=== PATIENT | female | born 1995 | race Caucasian/White ===

== ENCOUNTER → 2016-12-17 | Outpatient (CLI) | payer BC, OTHER ==
[~2016-12-17] MED LIST: AMIT10TA6 PO; BCPILLS PO; CHOL1000 PO; CYAN10005 PO; DIPH25TA26 PO; ESCI1TAB6 PO; ESCI1TAB9 PO; LORA10TA5 PO; MAGN250T8 PO; OMEG-41 PO; PYRI100T4 PO; RIBO1TAB4 PO; RIBOCAP PO; TOPI25TA99 PO; TOPI50TA16 PO; TURM1CAP PO; VITAMIN B12 PO
--- NOTE | 2016-12-17 14:52 | DIAGNOSTIC IMAGING REPORT ---
CHEST 2 VIEWS ROUTINE CLINICAL HISTORY: CHEST TIGHTNESS OR PRESSURE dyspnea COMPARISON STUDY: No previous studies for comparison. FINDINGS: The bones soft tissues and hemidiaphragms are normal. The cardiomediastinal silhouette is normal. The lungs are clear. The pulmonary vasculature is normal. IMPRESSION: Negative chest. Electronically signed by: Percy Webb M.D. 12/17/2016 2:51 PM Dictated Date/Time: 12/17/2016 2:51 PM
== END | disposition home or self-care (01) ==
LOC: C.RADPV 14:34
PROVIDERS: ATTEND Nurse Practitioner Family
DX: R07.89 Other chest pain (principal)

== ENCOUNTER → 2017-01-07 | Outpatient (CLI) | payer BC, OTHER ==
[2017-01-07 18:17] LABS: BLOOD UREA NITROGEN 10 mg/dl (7-18); BUN/CREATININE RATIO 11.2 (10-20); CALCIUM 8.8 mg/dl (8.5-10.1); CARBON DIOXIDE 25 mmol/L (21-32); CHLORIDE 109 mmol/L (98-107); CREATININE 0.91 mg/dl (0.60-1.20); GLUCOSE 83 mg/dl (70-99); POTASSIUM 4.1 mmol/L (3.5-5.1); SODIUM 140 mmol/L (136-145)
== END ==
LOC: C.LABPVFM 11:23
PROVIDERS: ATTEND Nurse Practitioner
DX: F41.8 Other specified anxiety disorders (principal); G43.909 Migraine, unspecified, not intractable, without status migrainosus; R06.89 Other abnormalities of breathing

== ENCOUNTER 2017-04-08 17:21 | Emergency (ER) | payer BC ==
[~2017-04-08] VITALS: Ht 162.6 cm; Wt 51.0 kg
[~2017-04-08 17:21] MED LIST changes: -AMIT10TA6 PO; -CHOL1000 PO; -CYAN10005 PO; -ESCI1TAB6 PO; -ESCI1TAB9 PO; -LORA10TA5 PO; -MAGN250T8 PO; -RIBO1TAB4 PO; -RIBOCAP PO; -TOPI25TA99 PO; -TURM1CAP PO
[2017-04-08 17:22] VITALS: TEMP 36.5; Ht 162.6 cm; Wt 51.0 kg
[2017-04-08] MEDS ORDERED: KETOROLAC TROMETHAMINE 30 MG/ML VIAL IV STA (18:01)
[2017-04-08] MEDS ORDERED: SODIUM CHLORIDE 0.9% 1000ML 1,000 ML IV STA (18:01)
[2017-04-08] MEDS ORDERED: PROCHLORPERAZINE 5 MG/ML 2 ML VIAL IV STA (18:01)
--- NOTE | 2017-04-08 18:12 | EMERGENCY ROOM VISIT NOTE ---
History Report prepared by Fidencio: Mary Hwang Under the Supervision of: Dr. Uvaldo Blum D.O. First contact with patient: 17:49 Chief Complaint: HEADACHE Stated Complaint: MIGRAINE FOR 12 DAYS,SAW NEURO,DIZZY,NUMBNESS History of Present Illness The patient is a 21 year old female who presents to the Emergency Room with complaints of a constant headache that started 12 days ago. The patient saw her neurologist and was given a Toradol shot, a steroid shot, and prednisone and has had no relief. She notes that she has had numbness in her fingers, been seeing black spots, and have been having blurry vision and nausea over the past 12 days. She denies having these symptoms now. She denies any fevers or neck stiffness. The patient has an MRI scheduled in three days. She denies ever having having a headache of this severity before. The patient is not on any blood thinners. She has been to the ED previously for the same symptoms. Source of History: patient Onset: 12 days ago Position: head Timing: constant Associated Symptoms: + nausea, + numbness (in fingers), No fevers, No neck pain (stiffness) Note: Pt notes her vision is blurry and she has been seeing black spots Review of Systems See HPI for pertinent positives & negatives. A total of 10 systems reviewed and were otherwise negative. Past Medical & Surgical Medical Problems: (1) No pertinent past medical history Family History no pertinent family history stated Social History Smoking Status: Never Smoker Housing Status: lives with family Occupation Status: employed Current/Historical Medications Scheduled Amitriptyline Hcl (Elavil), 10 MG PO HS Control Pills ( Control Pills), 1 TAB PO DAILY Cholecalciferol (Vitamin D3), 1,000 INTER.UNIT PO DAILY Cyanocobalamin (Vitamin B-12), 1,000 MCG PO DAILY Escitalopram Oxalate (Lexapro), 5 MG PO QPM Loratadine (Claritin), 10 MG PO DAILY Magnesium Oxide (Mg Supplement (Magnesium), 250 MG PO DAILY Providence-3 Fatty Acids (Mini Fish Oil), 645 MG PO DAILY Pyridoxine (Vitamin B6), 100 MG PO QAM Riboflavin (Riboflavin), 400 MG PO DAILY Topiramate (Topamax), 50 MG PO BID Turmeric (Curcuma Longa) (Turmeric Curcumin), 500 MG PO DAILY Allergies Coded Allergies: [place] (Verified Allergy, Severe, DIFFICULTY BREATHING, 02/06/16) NO KNOWN DRUG ALLERGIES (Verified Allergy, Unknown, ., 02/06/16) Physical Exam Vital Signs Date Time Temp Pulse Resp B/P (MAP) Pulse Ox O2 Delivery O2 Flow Rate FiO2 04/08/17 19:27 76 16 108/70 99 04/08/17 19:14 70 04/08/17 19:07 72 18 102/58 100 Room Air 04/08/17 17:22 36.5 92 18 130/79 100 Physical Exam GENERAL: Patient is awake, alert, and in no acute distress. Patient is resting comfortably and showing no signs of anxiety EYES: The conjunctivae are clear. The pupils are round and reactive. EARS, NOSE, MOUTH AND THROAT: The nose is without any evidence of any deformity. Mucous membranes are moist tongue is midline NECK: The neck is nontender and supple. RESPIRATORY: Normal respiratory effort is noted there is no evidence of wheezing rhonchi or rales CARDIOVASCULAR: Regular rate and rhythm noted there no murmurs rubs or gallops normal S1 normal S2 GASTROINTESTINAL: The abdomen is soft. Bowel sounds are present in all quadrants. Abdomen is nontender MUSCULOSKELETAL/EXTREMITIES: There is no evidence of gross deformity full range of motion is noted in the hips and shoulders SKIN: There is no obvious evidence of any rash. There are no petechiae, pallor or cyanosis noted. NEUROLOGIC: Patient is awake alert and oriented x3 strength is symmetric patellar reflexes are 2+ bilaterally Medical Decision & Procedures ER Provider Diagnostic Interpretation: Radiology results as stated below per my review and radiologist interpretation: HEAD WITHOUT CONTRAST (CT) FINDINGS: Senior Account Representative topogram: Unremarkable. Ventricles and sulci normal in size. Brain parenchyma normal in appearance with preserved enriquez-white differentiation. No mass effect or midline shift. No hemorrhage or acute territorial infarct. No extra-axial fluid collection. Paranasal sinuses and mastoid air cells clear. Calvarium intact. IMPRESSION: 1. No acute intracranial pathology. Electronically signed by: Khang Hollins M.D. Laboratory Results 04/08/17 18:14 Red Blood Count 4.58, Mean Corpuscular Volume 90.8, Mean Corpuscular Hemoglobin 29.9, Mean Corpuscular Hemoglobin Concent 32.9, Mean Platelet Volume 9.4, Neutrophils (%) (Auto) 74.9, Lymphocytes (%) (Auto) 13.5, Monocytes (%) (Auto) 11.0, Eosinophils (%) (Auto) 0.2, Basophils (%) (Auto) 0.1, Neutrophils # (Auto ) 6.68, Lymphocytes # (Auto) 1.21, Monocytes # (Auto) 0.98, Eosinophils # (Auto ) 0.02, Basophils # (Auto) 0.01 04/08/17 18:14 Test 04/08/17 18:14 04/08/17 18:15 White Blood Count 8.93 K/uL (4.8-10.8) Red Blood Count 4.58 M/uL (4.2-5.4) Hemoglobin 13.7 g/dL (12.0-16.0) Hematocrit 41.6 % (37-47) Mean Corpuscular Volume 90.8 fL (80-100) Mean Corpuscular Hemoglobin 29.9 pg (25-34) Mean Corpuscular Hemoglobin Concent 32.9 g/dl (32-36) Platelet Count 216 K/uL (130-400) Mean Platelet Volume 9.4 fL (7.4-10.4) Neutrophils (%) (Auto) 74.9 % Lymphocytes (%) (Auto) 13.5 % Monocytes (%) (Auto) 11.0 % Eosinophils (%) (Auto) 0.2 % Basophils (%) (Auto) 0.1 % Neutrophils # (Auto) 6.68 K/uL (1.4-6.5) Lymphocytes # (Auto) 1.21 K/uL (1.2-3.4) Monocytes # (Auto) 0.98 K/uL (0.11-0.59) Eosinophils # (Auto) 0.02 K/uL (0-0.5) Basophils # (Auto) 0.01 K/uL (0-0.2) RDW Standard Deviation 48.0 fL (36.4-46.3) RDW Coefficient of Variation 14.4 % (11.5-14.5) Immature Granulocyte % (Auto) 0.3 % Immature Granulocyte # (Auto) 0.03 K/uL (0.00-0.02) Erythrocyte Sedimentation Rate 3 mm/hr (0-21) Anion Gap 6.0 mmol/L (3-11) Est Creatinine Clear Calc Drug Dose 88.8 ml/min Estimated GFR () 121.3 Estimated GFR (Non- 104.7 BUN/Creatinine Ratio 22.9 (10-20) Calcium Level 9.1 mg/dl (8.5-10.1) Total Bilirubin 0.3 mg/dl (0.2-1) Direct Bilirubin < 0.1 mg/dl (0-0.2) Aspartate Amino Transf (AST/SGOT) 15 U/L (15-37) Alanine Aminotransferase (ALT/SGPT) 23 U/L (12-78) Alkaline Phosphatase 92 U/L (45-117) C-Reactive Protein < 0.29 mg/dl (0-0.29) Total Protein 7.6 gm/dl (6.4-8.2) Albumin 4.2 gm/dl (3.4-5.0) Lipase 111 U/L (73-393) Human Chorionic Gonadotropin, Qual NEG (NEG) Urine Color DK YELLOW Urine Appearance CLEAR (CLEAR) Urine pH 6.0 (4.5-7.5) Urine Specific [place] 1.023 (1.000-1.030) Urine Protein NEG (NEG) Urine Glucose (UA) NEG (NEG) Urine Ketones NEG (NEG) Urine Occult Blood TRACE (NEG) Urine Nitrite NEG (NEG) Urine Bilirubin NEG (NEG) Urine Urobilinogen NEG (NEG) Urine Leukocyte Esterase NEG (NEG) Urine WBC (Auto) 1-5 /hpf (0-5) Urine RBC (Auto) 0-4 /hpf (0-4) Urine Hyaline Casts (Auto) 1-5 /lpf (0-5) Urine Epithelial Cells (Auto) 10-20 /lpf (0-5) Urine Bacteria (Auto) NEG (NEG) Laboratory results per my review. Medications Administered Medications (Trade) Dose Ordered Sig/Aries Route Start Time Stop Time Status Last Admin Dose Admin Ketorolac Tromethamine (Toradol Inj) 30 mg NOW STAT IV 04/08/17 18:01 04/08/17 18:03 DC 04/08/17 18:14 30 MG Sodium Chloride 1,000 ml @ 999 mls/hr Q1H1M STAT IV 04/08/17 18:01 04/08/17 19:01 DC 04/08/17 18:13 999 MLS/HR Prochlorperazine Edisylate (Compazine Inj) 10 mg NOW STAT IV 04/08/17 18:01 04/08/17 18:03 DC 04/08/17 18:14 10 MG Diphenhydramine HCl (Benadryl Inj) 25 mg NOW STAT IV 04/08/17 18:19 04/08/17 18:20 DC 04/08/17 18:36 25 MG ED Course 1754: The patient was evaluated in room B7. A complete history and physical examination were performed. 1800: Compazine Inj 10 mg IV,NSS 1,000 ml @ 999 mls/hr IV, Toradol Inj 30 mg IV. 1818: Benadryl Inj 25 mg IV. 1917: Upon reevaluation, the patient is resting. I discussed the results and treatment plan with her. She verbalized agreement of the treatment plan. The patient was discharged home. Medical Decision Differential diagnosis: Etiologies such as migraine headache, meningitis, sinusitis, CO exposure, ICH, SAH, infection, tumor, headache, sinus thrombosis, arterial dissection, as well as others were entertained. Nursing notes reviewed. The patient is a 21-year-old female who presented to the emergency department with family members for an evaluation of acute headache. The patient has a history of migraine headaches. She states that she had an onset which was gradual of her usual migraine headache but he continues on for approximately 12 days. She was seen by her primary neurologist and given an injection of Toradol and placed on steroids but the headache continues. The patient did not have meningismus or fever. She had no focal neurologic deficit. I discussed the patient's laboratory and radiographic studies with her. She was treated with IV fluids IV pain medicine and IV antiemetics. On subsequent reevaluation she was feeling much better. She is scheduled for an MRI this Tuesday through her primary neurologist. She was encouraged to rest and avoid any strenuous activity. She was also encouraged to follow-up with her primary care physician as well as her primary neurologist. She was also encouraged to return to the emergency department immediately if symptoms change worsen or the need arises. Medication Reconcilliation Current Medication List: was personally reviewed by me Blood Pressure Screening Patient's blood pressure: Elevated blood pressure Blood pressure disposition: Elevated BP felt to be situational Impression Primary Impression: Migraine Additional Impression: Headache Scribe Attestation The scribe's documentation has been prepared under my direction and personally reviewed by me in its entirety. I confirm that the note above accurately reflects all work, treatment, procedures, and medical decision making performed by me. Departure Information Dispostion Home / Self-Care Referrals Zenaida Payne (PCP) Forms HOME CARE DOCUMENTATION FORM, IMPORTANT VISIT INFORMATION Patient Instructions Headaches Migraine and Tension, My [facility] Problem Qualifiers
[2017-04-08] MEDS ORDERED: DiphenhydrAMINE HCL 50 MG/ML VIAL IV STA (18:19)
[2017-04-08 18:41] LABS: BASO % 0.1 %; BASO ABS # 0.01 K/uL (0-0.2); COMPLETE YES; EOS % 0.2 %; HEMATOCRIT 41.6 % (37-47); IG% 0.3 %; LYMPH % 13.5 %; LYMPH ABS # 1.21 K/uL (1.2-3.4); MEAN CELL VOLUME 90.8 fL (80-100); MEAN CORPUSCULAR HEMOGLOBIN 29.9 pg (25-34); MEAN CORPUSCULAR HGB CONC 32.9 g/dl (32-36); MEAN PLATELET VOLUME 9.4 fL (7.4-10.4); NEUT % 74.9 %; PLATELET COUNT 216 K/uL (130-400); RED BLOOD COUNT 4.58 M/uL (4.2-5.4); WHITE BLOOD COUNT 8.93 K/uL (4.8-10.8)
[2017-04-08 18:43] LABS: CHLORIDE 107 mmol/L (98-107); POTASSIUM 3.7 mmol/L (3.5-5.1); SODIUM 140 mmol/L (136-145)
[2017-04-08 18:49] LABS: ALT/SGPT 23 U/L (12-78); BLOOD UREA NITROGEN 18 mg/dl (7-18); BUN/CREATININE RATIO 22.9 (10-20); CALCIUM 9.1 mg/dl (8.5-10.1); CARBON DIOXIDE 27 mmol/L (21-32); GLUCOSE 108 mg/dl (70-99)
[2017-04-08 18:51] LABS: URINE APPEARANCE CLEAR (CLEAR); URINE BILIRUBIN NEG (NEG); URINE COLOR DK YELLOW; URINE NITRITE NEG (NEG); URINE SPECIFIC GRAVITY 1.023 (1.000-1.030); UROBILINOGEN NEG (NEG)
[2017-04-08 18:52] LABS: ALKALINE PHOSPHATASE 92 U/L (45-117); AST/SGOT 15 U/L (15-37); C-REACTIVE PROTEIN < 0.29 mg/dl (0-0.29)
--- NOTE | 2017-04-08 18:53 | DIAGNOSTIC IMAGING REPORT ---
HEAD WITHOUT CONTRAST (CT) CLINICAL HISTORY: 21 years-old Female presenting with headache. TECHNIQUE: Multidetector CT imaging of the head was performed without the use of intravenous contrast. IV contrast: None. A dose lowering technique was used consistent with the principles of ALARA (as low as reasonably achievable). COMPARISON: None. CT DOSE (mGy.cm): The estimated cumulative dose is 537.48 mGy.cm. FINDINGS: Exchange Trouble Shooter topogram: Unremarkable. Ventricles and sulci normal in size. Brain parenchyma normal in appearance with preserved enriquez-white differentiation. No mass effect or midline shift. No hemorrhage or acute territorial infarct. No extra-axial fluid collection. Paranasal sinuses and mastoid air cells clear. Calvarium intact. IMPRESSION: 1. No acute intracranial pathology. Electronically signed by: Khang Hollins M.D. 04/08/2017 6:52 PM Dictated Date/Time: 04/08/2017 6:46 PM
[2017-04-08 18:55] LABS: MANUAL MICROSCOPIC REQUIRED? NO; REVIEW REQ? NO
[2017-04-08 19:07] LABS: PREG INTERNAL NEGATIVE QC NEG CLEAR BACKGROUND; PREG INTERNAL POSITIVE QC POS CONTROL LINE
[2017-04-08 19:27] VITALS: BP 108/70; PULSE 76; O2SAT 99
[2017-04-08] MEDS ORDERED: CHOL1000 PO (19:34)
[2017-04-08] MEDS ORDERED: OMEG-41 PO (19:34)
[2017-04-08] MEDS ORDERED: MAGN250T8 PO (19:34)
[2017-04-08] MEDS ORDERED: CYAN10005 PO (19:34)
[2017-04-08] MEDS ORDERED: TURM1CAP PO (19:34)
[2017-04-08] MEDS ORDERED: RIBO1TAB4 PO (19:34)
[2017-04-08] MEDS ORDERED: ESCI1TAB6 PO (19:34)
[2017-04-08] MEDS ORDERED: LORA10TA5 PO (19:34)
[2017-04-08] MEDS ORDERED: AMIT10TA6 PO (19:34)
== END 2017-04-08 19:29 | disposition home or self-care (01) ==
LOC: C.EDB 17:22
DX: G43.909 Migraine, unspecified, not intractable, without status migrainosus (principal); Z79.3 Long term (current) use of hormonal contraceptives; Z79.899 Other long term (current) drug therapy

== ENCOUNTER → 2017-04-12 | Outpatient (CLI) | payer BC ==
[~2017-04-12] MED LIST changes: +AMIT10TA6 PO; +CHOL1000 PO; +CYAN10005 PO; -DIPH25TA26 PO; +ESCI1TAB6 PO; +LORA10TA5 PO; +MAGN250T8 PO; +RIBO1TAB4 PO; +TURM1CAP PO; -VITAMIN B12 PO
--- NOTE | 2017-04-12 16:41 | DIAGNOSTIC IMAGING REPORT ---
MRI OF THE BRAIN WITHOUT CONTRAST CLINICAL HISTORY: G43.919 Intractable [id number] COMPARISON STUDY: Head CT dated 04/08/2017 FINDINGS: Sagittal T1, axial diffusion, proton density and T2 weighted axial, coronal FLAIR, and axial T1-weighted images were acquired. No intra or extra-axial mass lesions are visualized Axial diffusion-weighted images reveal no evidence of acute or subacute infarction. There is no evidence of ventricular dilatation. Proton density T2-weighted and FLAIR images reveal no significant intraparenchymal signal abnormalities. There is a small right maxillary sinus polyp/retention cyst. There are no abnormal flow voids. IMPRESSION: Normal MRI of the brain. Electronically signed by: Reid Miles M.D. 04/12/2017 4:40 PM Dictated Date/Time: 04/12/2017 4:37 PM
== END | disposition home or self-care (01) ==
LOC: C.MRIBC 15:55
PROVIDERS: ATTEND Psychiatry & Neurology Neurology
DX: G43.919 Migraine, unspecified, intractable, without status migrainosus (principal)

== ENCOUNTER → 2017-04-22 | Outpatient (CLI) | payer BC ==
[2017-04-22 18:18] LABS: LYME DISEASE AB IGG NEG (NEG); LYME DISEASE AB IGM NEG (NEG)
== END | disposition home or self-care (01) ==
LOC: C.LABPVFM 16:16
PROVIDERS: ATTEND Nurse Practitioner
DX: R53.83 Other fatigue (principal); G43.909 Migraine, unspecified, not intractable, without status migrainosus; F41.9 Anxiety disorder, unspecified

== ENCOUNTER → 2017-09-02 | Outpatient (CLI) | payer BC ==
[~2017-09-02] MED LIST changes: -AMIT10TA6 PO; -ESCI1TAB6 PO; +ESCI1TAB9 PO; -LORA10TA5 PO; +LORA10TA6 PO; +TOPI25TA99 PO
== END | disposition home or self-care (01) ==
LOC: C.LABSPEC 15:54
PROVIDERS: ATTEND Obstetrics & Gynecology
DX: Z01.419 Encounter for gynecological examination (general) (routine) without abnormal findings (principal)

== ENCOUNTER → 2017-09-02 | Outpatient (CLI) | payer BC | END | disposition home or self-care (01) | LOC: C.LABSPEC 13:52 | PROVIDERS: ATTEND Obstetrics & Gynecology | DX: Z11.3 Encounter for screening for infections with a predominantly sexual mode of transmission (principal); Z11.8 Encounter for screening for other infectious and parasitic diseases ==

== ENCOUNTER → 2017-11-17 | Outpatient (CLI) | payer BC | END | disposition home or self-care (01) | LOC: C.RDSM 15:23 | PROVIDERS: ATTEND Orthopaedic Surgery Sports Medicine | DX: R20.0 Anesthesia of skin (principal) ==

== ENCOUNTER 2024-10-07 14:24 | Inpatient (IN) ==
[2024-10-07] MEDS ORDERED: ACETAMINOPHEN 500 MG TAB PO PRN (16:35)
[2024-10-07] MEDS ORDERED: CALCIUM CARBONATE 500 MG CHEWABLE TAB PO PRN (16:35)
[2024-10-07] MEDS ORDERED: LIDOCAINE 1% LOCAL 20 ML VIAL INFIL PRN (16:35)
[2024-10-07] MEDS: LACTATED RINGER'S 1,000 ML IV PRN (16:47)
--- NOTE | 2024-10-07 16:59 | Anesthesiology Consultation ---
Date of Service October 07, 2024 Assessment & Plan (1) Encounter for pre-operative examination: Chart Review Chart Review: Acceptable Risk for Labor Epidural History Height/Weight Height: 5 ft 5 in Weight: 64.864 kg Allergies Allergy/AdvReac Type Severity Reaction Status Date / Time latex Allergy Intermediate Rash Verified 10/05/24 15:09 No Known Drug Allergies Allergy Unknown . Verified 10/05/24 15:09 Medications Home Medications Medication Instructions Recorded Confirmed Last Taken 21-iron fu-folic acid PO 02/22/24 10/05/24 10/06/24 [ Complete] ferrous sulfate 65 mg PO 2XWK 06/04/24 10/07/24 10/06/24 acetone (urine) test (Ketone Urine #50 ea 08/17/24 10/05/24 Unknown Test strips) blood sugar diagnostic (OneTouch #150 ea 08/17/24 10/05/24 Unknown Verio test strips) blood-glucose meter (OneTouch #1 ea 08/17/24 10/05/24 Unknown Verio Reflect Meter) lancets 33 gauge (OneTouch Delica #150 ea 08/17/24 10/05/24 Unknown Plus Lancet) vitamin B6-vitamin E-magnesium tab PO 10/07/24 10/07/24 tablet Active Medications Generic Name Dose Route Start Last Admin Trade Name Freq PRN Reason Stop Dose Admin Lactated Ringer's 1,000 mls @ 125 mls/hr 10/07/24 16:35 10/07/24 16:47 Lr IV 10/08/24 16:34 999 mls/hr .Q8H PRN Administration L&D Protocol Protocol Past Medical History Medical History (Updated 10/07/24 @ 16:59 by Christopher Bailey MD) Gestational diabetes Adult celiac disease Need for MMR vaccine Classic migraine with aura Anxiety Past Family History Family History Mother Anxiety Gallbladder disease Emphysema of lung Depression Father Hypertension Grandfather (Maternal) Anxiety Depression Emphysema of lung Bladder cancer Grandfather (Paternal) Kidney disease Heart disease Myocardial infarction Grandmother (Maternal) Breast cancer, Onset Age: 75 Heart disease, congenital Grandmother (Paternal) Diabetes Hypertension Mouth cancer Denies family history of Ovarian cancer Prostate cancer Colorectal cancer Past Surgical History Surgical History H/O colonoscopy Hx of endoscopy History of tooth extraction History of carpal tunnel surgery R wrist Social History Smoking Status: Never smoker Do You Dip or Chew Tobacco: No Hx Alcohol Use: No Hx Substance Use: No Physical Exam Vital Signs Last Vital Signs Temp 36.5 C 10/07/24 14:41 Pulse 88 10/07/24 16:56 Resp 20 10/07/24 14:41 BP 123/83 10/07/24 14:41 Pulse Ox 98 10/07/24 16:56 Testing Laboratory Results pending
[2024-10-07 17:10] LABS: Hematocrit (blood only) 38.4 % (37.0-47.0); Mean Corpuscular Hemoglobin 30.3 pg (25.0-34.0); Mean Corpuscular Hgb Conc 33.9 g/dL (32.0-36.0); Mean Corpuscular Volume 89.5 fL (80.0-100.0); Platelet Count 189 K/uL (130-400); RDW Coefficient of Variation 14.6 % (11.5-14.5); RDW Standard Deviation 47.3 fL (36.4-46.3); Red Blood Count 4.29 M/uL (4.20-5.40)
--- NOTE | 2024-10-07 17:12 | History & Physical Report ---
Date of Service October 07, 2024 Assessment & Plan (1) Supervision of normal first : Plan: Eneida is a 28-year-old G1, P0 currently at 39 weeks 2 days gestational age presented for labor evaluation and spontaneous rupture during monitoring. Category 1 tracing. Currently laboring spontaneously but will augment if needed. Epidural per preference. GBS negative. (2) SROM (spontaneous rupture of membranes): (3) Normal labor and delivery: History of Present Illness Primary Care Provider: Mercedez Reese DO Eneida is a 28-year-old G1, P0 currently at 39 weeks 2 days gestational age presents in early labor. Patient had a spontaneous rupture of membranes during labor evaluation. Denying vaginal bleeding and noted good movement. Allergies Allergy/AdvReac Type Severity Reaction Status Date / Time latex Allergy Intermediate Rash Verified 10/05/24 15:09 No Known Drug Allergies Allergy Unknown . Verified 10/05/24 15:09 Home Medications Medication Instructions Recorded Confirmed Type 21-iron fu-folic acid PO 02/22/24 10/05/24 History [ Complete] ferrous sulfate 65 mg PO 2XWK 06/04/24 10/07/24 History acetone (urine) test (Ketone Urine #50 ea 08/17/24 10/05/24 Rx Test strips) blood sugar diagnostic (OneTouch #150 ea 08/17/24 10/05/24 Rx Verio test strips) blood-glucose meter (OneTouch #1 ea 08/17/24 10/05/24 Rx Verio Reflect Meter) lancets 33 gauge (OneTouch Delica #150 ea 08/17/24 10/05/24 Rx Plus Lancet) vitamin B6-vitamin E-magnesium tab PO 10/07/24 History tablet Patient History Medical History (Updated 10/07/24 @ 17:11 by Derrick Grady MD) Gestational diabetes Adult celiac disease Need for MMR vaccine Classic migraine with aura Anxiety Surgical History H/O colonoscopy Hx of endoscopy History of tooth extraction History of carpal tunnel surgery R wrist Family History Mother Anxiety Gallbladder disease Emphysema of lung Depression Father Hypertension Grandfather (Maternal) Anxiety Depression Emphysema of lung Bladder cancer Grandfather (Paternal) Kidney disease Heart disease Myocardial infarction Grandmother (Maternal) Breast cancer, Onset Age: 75 Heart disease, congenital Grandmother (Paternal) Diabetes Hypertension Mouth cancer Denies family history of Ovarian cancer Prostate cancer Colorectal cancer Social History (Updated 10/07/24 @ 14:39 by Kaley Gordon, RN) Smoking Status: Never smoker Second Hand Exposure: No; Do You Dip or Chew Tobacco: No; Hx Alcohol Use: No Hx Substance Use: No Preferred Language: Togolese Communication Ability: Effective Visual Impairment: No Limitations Hearing Ability: Normal Simulation Engineer Required: No Beliefs That Will Affect Care: None marital status: marital status details: Maurilio Colón (26) [phone] Current Living Situation: Spouse Current Living Situation Comment: lives with , dog, cat-Fob changing litter current occupational status: employed current occupation: [employer] How many Children do You have: 0 Other Information That Helps Us Care for You: No Feels Safe at Home: Yes Childhood Exposure to Second-Hand Smoke: No Diet: regular Diet Comment: regular caffeine: No during the past year weight has: remained stable Dental Care, Regularly: Yes Physical Activity Frequency: Daily Seatbelt Use: always Sunscreen Use: Yes Assistive Devices: None Physical Exam Genitourinary: OB Exam Monitor Tracing: + external FHT monitor used, + external uterine monitor used, + category I and + normal FHT variability Grossly ruptured on exam for clear fluid Results & Data Vital Signs (Past 12 Hours) Vital Signs Temp Pulse Resp BP 10/07/24 14:41 36.5 C 82 20 123/83 10/07/24 14:35 82 123/83 Code Status & VTE Plan VTE Prophylaxis Plan VTE Prophylaxis will be ordered: No Coding Level of Care Code None Diagnoses Encounter for supervision of normal first in third trimester Z34.03 Trimester: third trimester SROM (spontaneous rupture of membranes) Normal labor and delivery O80 (1) Supervision of normal first Trimester: third trimester Qualified Code(s): Z34.03 - Encounter for supervision of normal first , third trimester
[2024-10-07] MEDS: BUPIVACAINE 0.25% PF 30 ML VIAL ONE (17:22)
[2024-10-07] MEDS: fentaNYL citrate PF 100 MCG/2 ML VIAL ONE (17:22)
[2024-10-07] MEDS: fentANYL 2 MCG/ML BUPIVacaine 0.125%-NSS 100ML BAG ONE (17:28)
[2024-10-07] MEDS: LIDOCAINE 2%/EPINEPHRINE 1:200,000 20 ML PF ONE (17:28)
[2024-10-07] MEDS ORDERED: ONDANSETRON INJ 2 MG/ML 2 ML VIAL IV PRN (17:31)
[2024-10-07] MEDS ORDERED: NALOXONE HCL 1 MG in SODIUM CHLORIDE 0.9% 1,000 ML IV PRN (17:31)
[2024-10-07] MEDS ORDERED: SODIUM CHLORIDE 0.9% PF INJ 10 ML VIAL EPI PRN (17:31)
[2024-10-07] MEDS ORDERED: NALOXONE HCL 0.4 MG/1 ML VIAL/CARP IV PRN (17:31)
[2024-10-07] MEDS ORDERED: LIDOCAINE 2% MPF LOCAL 5 ML VIAL EPI PRN (17:31)
[2024-10-07] MEDS ORDERED: fentANYL 2 MCG/ML BUPIVacaine 0.125%-NSS 100ML BAG EPI PRN (17:31)
[2024-10-07] MEDS ORDERED: fentaNYL citrate PF 100 MCG/2 ML VIAL EPI PRN (17:31)
[2024-10-07] MEDS ORDERED: ROPIVACAINE 0.5% PF 5 MG/ML 20 ML VIAL EPI PRN (17:31)
[2024-10-07] MEDS ORDERED: ePHEDrine sulfate 50 MG/ML AMP IV PRN (17:31)
[2024-10-07] MEDS ORDERED: BUPIVACAINE 0.25% PF 30 ML VIAL EPI PRN (17:31)
[2024-10-07] MEDS: SODIUM CHLORIDE 0.9% PF INJ 10 ML VIAL ONE (17:32)
[2024-10-07] MEDS: ePHEDrine sulfate 50 MG/ML AMP ONE (17:33)
[2024-10-07] MEDS: OXYTOCIN 30 UNITS/NSS 30 UNITS/500 ML BAG IV PRN (20:57)
[2024-10-07] MEDS ORDERED: HYDROCORTISONE ACETATE 25 MG SUPP PR PRN (21:07)
[2024-10-07] MEDS ORDERED: OXYTOCIN 30 UNITS/NSS 30 UNITS/500 ML BAG IV PRN (21:07)
[2024-10-07] MEDS ORDERED: DIPHTHER/TETAN/PERTUS Vaccine (Tdap, Adol/Adult) 0.5mL IM ONE (21:07)
--- NOTE | 2024-10-07 21:09 | Delivery Summary ---
Vaginal Delivery Summary Date of Service October 07, 2024 Vaginal Delivery Summary and 1st Degree LAC Progressed to 10 cm dilated, 100% effaced +3 station pushed over intact perineum with epidural anesthesia and delivered a viable male with weight and Apgars pending. Head delivered without difficulty quickly followed by shoulders and body. There is noted to be a tight nuchal cord which was delivered through and reduced after delivery. was noted to be vigorous soon after delivery and a 1 minute delayed cord clamping was initiated. Cord was then double clamped and cut and remained on maternal abdomen. Cord blood obtained and attention turned to delivery of placenta was delivered intact three-vessel cord gentle cord traction. Inspection of vagina perineum and cervix there is noted to be a left labial laceration which repaired 3-0 Vicryl in a continuous running stitch. Needle sponge and instrument counts correct at the completion of the case. Both mother and stable immediate post delivery timeframe. No complications noted and blood loss per QBL. [facility] Vaginal Delivery Charge Delivery Type Details: and 1st Degree LAC
--- NOTE | 2024-10-07 22:53 | Anesthesia Procedure Note ---
Date of Service October 07, 2024 Anesthesia Post Epidural Note Vital Signs Vital Signs: Temp Pulse Resp BP Pulse Ox 36.9 C 98 H 16 112/76 93 10/07/24 19:02 10/07/24 22:43 10/07/24 22:30 10/07/24 22:43 10/07/24 21:03 Notes Mental Status: alert / awake / arousable and participated in evaluation Patient Amnestic to Procedure: No Nausea / Vomiting: adequately controlled Pain: adequately controlled Airway Patency, RR, SpO2: stable & adequate BP & HR: stable & adequate Hydration State: stable & adequate Neuraxial Anesthesia: was administered Anesthetic Complications: no major complications apparent and Pt Satisfied with anesthetic care Epidural: Removed without complications and With tip intact
[2024-10-08] MEDS: IBUPROFEN 600 MG TAB PO PRN (06:44)
[2024-10-08] MEDS: BUPIVACAINE 0.25% PF 30 ML VIAL EPI STA (07:15)
[2024-10-08] MEDS: fentaNYL citrate PF 100 MCG/2 ML VIAL EPI STA (07:15)
[2024-10-08] MEDS: SODIUM CHLORIDE 0.9% PF INJ 10 ML VIAL EPI STA (07:15)
[2024-10-08] MEDS: LIDOCAINE 2%/EPINEPHRINE 1:200,000 20 ML PF EPI STA (07:15)
--- NOTE | 2024-10-08 07:27 | Obstetrical Progress Note ---
Date of Service <Teodoro Johnson MD - Last Filed: 10/08/24 07:47> October 08, 2024 Assessment & Plan <Teodoro Johnson MD - Last Filed: 10/08/24 07:47> (1) care and examination: PPD#1 s/p at 39 wga. Rh+, GBS neg, rubella non immune, VSS Continue routine care, ambulation, diet as tolerated Plan for DC tomorrow <Derrick Grady MD - Last Filed: 10/08/24 07:51> (1) care and examination: Subjective <Teodoro Johnson MD - Last Filed: 10/08/24 07:47> Eneida is a 28yo who is PPD#1 following at 38 wga Mild abd pain/cramping, ~1/10 Voiding w/o issue Tolerating meals Ambulating normally +passing gas Lochia - appropriate, diminishing Planning to breastfeed. Constitutional: no fever, no chills or no sweats Respiratory: no dyspnea Cardiovascular: no chest pain, no palpitations or no calf pain Breast: no breast pain Gastrointestinal: no nausea or no vomiting Genitourinary (female): no dysuria Neurologic: no headache(s) no changes in vision, no headaches Physical Exam <Teodoro Johnson MD - Last Filed: 10/08/24 07:47> General: Alert, oriented. No acute distress. Cardiac: Regular rate and rhythm, no murmurs, rubs, or gallops. Respiratory: Clear to auscultation bilaterally. No increased work of breathing. Symmetrical chest rise. No respiratory distress. Abdomen: Soft, nontender, nondistended. Bowel sounds present. Uterus: Uterine fundus firm, nontender, palpable at the level of the umbilicus. Lower extremities: No lower extremity edema or swelling. No deep calf pain. Results & Data <Teodoro Johnson MD - Last Filed: 10/08/24 07:47> Vital Signs (Past 12 Hours) Vital Signs Temp Pulse Pulse Resp BP BP Pulse Ox 10/08/24 03:45 37.7 C H 114 H 18 117/80 10/07/24 23:28 37 C 89 16 122/79 97 10/07/24 23:05 100 H 124/77 10/07/24 23:00 18 10/07/24 22:58 107 H 143/79 H 10/07/24 22:43 98 H 112/76 10/07/24 22:30 16 10/07/24 22:28 93 H 109/72 10/07/24 22:15 16 10/07/24 22:13 101 H 119/81 10/07/24 22:00 16 10/07/24 21:58 107 H 122/79 10/07/24 21:45 18 10/07/24 21:43 111 H 115/64 10/07/24 21:32 92 H 117/64 10/07/24 21:30 18 10/07/24 21:15 18 10/07/24 21:13 90 110/62 10/07/24 21:03 106 H 93 10/07/24 21:01 96 10/07/24 21:01 114 H 10/07/24 21:01 104 H 112/57 L 10/07/24 21:00 18 10/07/24 20:57 111 H 94 10/07/24 20:56 116 H 100 10/07/24 20:51 129 H 100 10/07/24 20:46 120 H 100 10/07/24 20:45 107 H 89 L 10/07/24 20:44 123 H 107/56 L 10/07/24 20:41 106 H 66 L 10/07/24 20:38 106 H 79 L 10/07/24 20:36 134 H 85 L 10/07/24 20:31 108 H 100 10/07/24 20:29 105 H 122/81 10/07/24 20:28 116 H 93 10/07/24 20:26 110 H 98 10/07/24 20:21 97 H 100 10/07/24 20:16 90 100 10/07/24 20:14 89 125/80 10/07/24 20:13 99 H 91 10/07/24 20:11 91 H 99 10/07/24 20:06 90 100 10/07/24 20:01 90 100 10/07/24 19:59 91 H 130/83 10/07/24 19:56 93 H 100 10/07/24 19:51 92 H 99 10/07/24 19:46 107 H 100 10/07/24 19:43 110 H 116/78 10/07/24 19:41 104 H 99 10/07/24 19:36 113 H 98 10/07/24 19:31 104 H 100 10/07/24 19:29 103 H 113/68 O2 Del Method 10/08/24 03:45 Room Air 10/07/24 23:28 Room Air 10/07/24 23:05 10/07/24 23:00 10/07/24 22:58 10/07/24 22:43 10/07/24 22:30 10/07/24 22:28 10/07/24 22:15 10/07/24 22:13 10/07/24 22:00 10/07/24 21:58 10/07/24 21:45 10/07/24 21:43 10/07/24 21:32 10/07/24 21:30 10/07/24 21:15 10/07/24 21:13 10/07/24 21:03 10/07/24 21:01 10/07/24 21:01 10/07/24 21:01 10/07/24 21:00 10/07/24 20:57 10/07/24 20:56 10/07/24 20:51 10/07/24 20:46 10/07/24 20:45 10/07/24 20:44 10/07/24 20:41 10/07/24 20:38 10/07/24 20:36 10/07/24 20:31 10/07/24 20:29 10/07/24 20:28 10/07/24 20:26 10/07/24 20:21 10/07/24 20:16 10/07/24 20:14 10/07/24 20:13 10/07/24 20:11 10/07/24 20:06 10/07/24 20:01 10/07/24 19:59 10/07/24 19:56 10/07/24 19:51 10/07/24 19:46 10/07/24 19:43 10/07/24 19:41 10/07/24 19:36 10/07/24 19:31 10/07/24 19:29 Supervising Physician <Derrick Grady MD - Last Filed: 10/08/24 07:51> Co-Signing Physician Notes Patient seen with resident and agree with the above findings and plan. Routine care Resident Activity Tracking <Teodoro Johnson MD - Last Filed: 10/08/24 07:47> Resident Involvement: Resident Care Provided Care Provided: Adult Hospital Medicine
[2024-10-08] MEDS: ACETAMINOPHEN 325 MG TAB PO PRN (11:09)
[2024-10-08] MEDS: BENZOCAINE 20% SPRY 85 APPLN/85 GM CAN EXT PRN (11:09)
[2024-10-08] MEDS ORDERED: Nursing to Pharmacy Communication SCH (12:45)
[2024-10-08] MEDS: DOCUSATE SODIUM 100 MG CAP PO SCH (21:04)
[2024-10-08] MEDS: bisacodyL 5 MG TABEC PO SCH (21:05)
[2024-10-09] MEDS ORDERED: bisacodyL 10 MG SUPP PR PRN
[2024-10-09 02:22] VITALS: TEMP 98.1
--- NOTE | 2024-10-09 06:10 | Obstetrical Progress Note ---
Date of Service October 09, 2024 Assessment & Plan (1) care and examination: PPD#2 s/p at 39 wga. Rh+, GBS neg, rubella non immune, VSS Continue routine care, ambulation, diet as tolerated Plan for DC today Melita Monique is a 28yo who is PPD#2 following at 38 wga Mild abd pain/cramping, ~1/10 Voiding w/o issue Tolerating meals Ambulating normally +passing gas, no BM Lochia - appropriate, diminishing Planning to breastfeed. Constitutional: no fever, no chills or no sweats Respiratory: no dyspnea Cardiovascular: no chest pain, no palpitations or no calf pain Breast: no breast pain Gastrointestinal: no nausea or no vomiting Genitourinary (female): no dysuria Neurologic: no headache(s) Physical Exam General: Alert, oriented. No acute distress. Cardiac: Regular rate and rhythm, no murmurs, rubs, or gallops. Respiratory: Clear to auscultation bilaterally. No increased work of breathing. Symmetrical chest rise. No respiratory distress. Abdomen: Soft, nontender, nondistended. Bowel sounds present. Uterus: Uterine fundus firm, nontender, palpable at the level of the umbilicus. Lower extremities: No lower extremity edema or swelling. No deep calf pain. Results & Data Vital Signs (Past 12 Hours) Vital Signs Temp Pulse Resp BP Pulse Ox O2 Del Method 10/09/24 02:15 36.7 C 75 16 104/69 97 Room Air 10/08/24 21:00 36.8 C 80 18 107/73 96 Room Air Resident Activity Tracking Resident Involvement: Resident Care Provided Care Provided: Adult Hospital Medicine
[2024-10-09] MEDS: FERROUS SULFATE 325 MG TAB PO SCH (08:00)
[2024-10-09] MEDS: PRENATAL VITAMIN 1 TAB PO SCH (08:00)
[2024-10-09 08:43] VITALS: BP 111/73; PULSE 84; RESP 20; O2SAT 96
[2024-10-09] MEDS: MEASLES, MUMPS & RUBELLA VIRUS VACCINE (MMR) 0.5ML VIAL SQ ONE (10:46)
== END 2024-10-09 13:30 | disposition home or self-care (01) | DRG 807 ==
LOC: 4S1 14:24 → OPB 14:24 → 4S1 14:26 → 4E2 23:42